=== PATIENT | male | born 1960 | race Caucasian/White ===

== ENCOUNTER 2024-07-12 15:05 | Emergency (ER) | payer MEDICARE, OTHER, SELFPAY ==
[2024-07-12 15:12] VITALS: BP 152/73
[2024-07-12 15:35] LABS: % Basophils 0.7 % (0-2); % Immature Granulocytes 0.5 % (0-0.5); % Lymphocytes 7.2 % (20.5-51.1); % Monocytes 4.5 % (1.7-9.3); % Neutrophils 87.1 % (42.2-75.2); Absolute Basophils 0.1 10^3/uL (0-0.2); Absolute Immature Granulocytes 0.1 10^3/uL (0-0.05); Absolute Lymphocytes 1.3 10^3/uL (1.2-3.4); Absolute Monocytes 0.8 10^3/uL (0.1-0.6); Absolute Neutrophils 15.9 10^3/uL (1.4-6.5); Hematocrit 41.9 % (39.0-52.0); Hemoglobin 14.9 g/dL (13.0-18.0); Mean Corp Hgb Conc. 35.6 g/dL (33.0-37.0); Mean Corpuscular Hgb 30.6 pg (27.0-31.0); Mean Platelet Volume 10.8 fL (7.4-10.4); Nucleated Red Blood Cells % 0 % (-); Platelet Count 260 10^3/uL (130-400); Red Blood Cell Count 4.87 10^6/uL (4.70-6.10); Red Cell Dist. Width 15.2 % (11.5-14.5); White Blood Cell Count 18.3 10^3/uL (4.8-10.8)
[2024-07-12 15:50] LABS: ALT (SGPT) 27 U/L (0-50); AST (SGOT) 23 U/L (17-59); Albumin 4.7 g/dl (3.5-5.0); Alkaline Phosphatase 101 U/L (38-126); Blood Urea Nitrogen 17 mg/dl (9-20); Calcium 10.2 mg/dl (8.4-10.2); Carbon Dioxide 24 mmol/L (22-30); Chloride 106 mmol/L (98-107); Glucose 129 mg/dl (70-99); Lipase 143 U/L (23-300); Potassium 4.3 mmol/L (3.5-5.1); Sodium 141 mmol/L (135-145); Total Bilirubin 0.5 mg/dl (0.2-1.3); Total Protein 7.4 g/dl (6.3-8.2); eGFR > 60.00
[2024-07-12 16:00] LABS: Troponin I < 0.012 ng/ml
[2024-07-12 16:06] VITALS: BP 148/84
--- NOTE | 2024-07-12 16:30 | ED.GENMED ---
History of Present Illness
General
Chief Complaint: Abdominal Pain
Source: patient
Exam Limitations: none
Time Seen by Provider: 07/12/24 16:30
Nursing documentation reviewed up to this point in time: agreed with
History of Present Illness
History of Present Illness:
Patient is a 64 yr old male who presents to the ER for evaluation. Patient reports at 12:30 PM while at work he had sudden onset left abdomen/flank pain which radiated to his left anterior abdomen groin and left testicle. He reports it was very
sudden and sharp. He almost passed out because the pain. Currently his pain has improved is mildly they are he also reports his urine seemed bloody/dark in color. He has not been able to urinate here though he does have the urge. He denies any
fever or chills. Denies any injury.
Review of Systems
Review of Systems
Allergies reviewed?: Yes
Constitutional: Reports no symptoms; Denies fever, fatigue or chills
Respiratory: Reports no symptoms
Cardiac: Reports no symptoms
ABD/GI: Reports abdominal pain; Denies nausea or vomiting
: Reports flank pain, difficulty voiding, bleeding and dark urine
Musculoskeletal: Reports no symptoms
Skin: Reports no symptoms
Neurological: Reports no symptoms
Psychiatric: Reports no symptoms
Phy Exam
General Physical Exam
General Presentation: no apparent distress
General age: appears stated age
General Skin: warm and dry
General Habitus: normal
General Mental: alert
General Hydration: appears well hydrated
Gastrointestinal Exam
Gastrointestinal Exam: normal bowel sounds, non tender and soft
Neurological Exam
Neurological Exam: alert and oriented x3
Musculoskeletal Exam
Musculoskeletal Exam: full ROM
Skin Exam
Skin Exam: normal color and warm/dry
Psychiatric Exam
Psychiatric Exam: normal mood/affect
Course
Orders/Labs/Results
Orders:
Orders
07/12/24 15:14
Electrocardiogram (*1) Urgent
Reason for Study: Abdominal Pain
EKG- Treatment ONCE
07/12/24 15:28
Complete Blood Count/With Diff Urgent
Comprehensive Metabolic Panel Urgent
Lipase Urgent
Troponin I Urgent
07/12/24 16:38
Bladder Scan- Treatment ONCE
IV Insert/Care/Rem.- Treatment PRN
0.9% Sodium Chloride 1000 ml [Nss] 1,000 ml IV BOLUS
0.9% Sodium Chloride 1000 ml [Nss] 1,000 ml IV BOLUS
Ketorolac [Toradol] 15 mg IV NOW STA
07/12/24 16:39
CT Abd/pel Without Iv Or Oral Urgent
Comment:
Reason For Exam: left flank pain
07/12/24 17:41
UA Reflex to Culture [Urinalysis Reflex To Culture] Urgent
Date Specimen was Collected: 07/12/24
Time Specimen was Collected: 17:38
Urine Microscopic Reflex Cult Urgent
Abnormal Lab Results
07/12/24 07/12/24
15:28 17:41
WBC 18.3 H 10^3/uL
(4.8-10.8)
RDW 15.2 H %
(11.5-14.5)
MPV 10.8 H fL
(7.4-10.4)
Abs Immat Gran (auto) 0.1 H 10^3/uL
(0-0.05)
Absolute Neuts (auto) 15.9 H 10^3/uL
(1.4-6.5)
Absolute Monos (auto) 0.8 H 10^3/uL
(0.1-0.6)
Neutrophils % 87.1 H %
(42.2-75.2)
Lymphocytes % 7.2 L %
(20.5-51.1)
Glucose 129 H mg/dl
(70-99)
Urine Ketones 3+ A
(Negative)
Ur Occult Blood Reflex 4+ A
(Negative)
Urine RBC >100 A /HPF
(0-2)
Urine Bacteria (Reflex) Few A
(Negative)
Urine Albumin (Reflex) 2+ A
(Neg - Trace)
07/12/24 15:28
07/12/24 15:28
Vital Signs
Initial and Last Documented VS:
Initial Vital Signs
Temp Pulse Resp BP Pulse Ox
98.4 F 61 18 152/73 99
07/12/24 15:12 07/12/24 15:12 07/12/24 15:12 07/12/24 15:12 07/12/24 15:12
Last Documented Vital Signs
Temp Pulse Resp BP Pulse Ox
98.4 F 70 15 123/78 99
07/12/24 15:12 07/12/24 17:15 07/12/24 16:54 07/12/24 17:00 07/12/24 17:30
MDM/Problems Addressed
Differential Diagnosis Includes:
Not limited to kidney stone, bladder infection
MDM/Problems Addressed:
Patient presented with left flank pain rating to left groin. Patient reports pain was very uncomfortable he reports he always had a near syncopal episode episode when pain occurred however now pain has improved and really subsided. He appears in
no acute distress. CAT scan does show findings consistent with a 2.5 mm stone within the posterior aspect of the urinary bladder likely secondary to recently passed stone. Urinalysis is negative for infection white count elevated likely reactive.
Patient is very well-appearing afebrile no acute distress abdomen soft nontender stable hemoglobin, normal kidney function. EKG normal sinus rhythm heart rate 65. Will DC with outpatient follow-up with urology.
*Radiology
Radiology exam reviewed: radiology read reviewed (2.5 cm stone within the posterior aspect of the bladder adjacent to the left UVJ likely secondary to recently passed stone)
*Pulse Oximetry
Patient hypoxic: no
*Critical Care Note
Total Time (30-74mins, 75-104mins- exclusive of procedures): Not Applicable
ED Attending Note
-
Portions of this chart may have been created with voice recognition software.� Occasional wrong word or��sound alike� substitutions may have occurred due to the inherent limitations of voice recognition software.
Discharge Plan
Departure
Patient Disposition: Home (Routine Discharge)
Date of Disposition: 07/12/24
Time of Disposition: 18:39
Patient with high blood pressure during this ER visit?: Yes
Condition: Fair
Covid-19: Not Applicable
Discharge Problem:
kidney stone
Instructions: Kidney Stones (DC), BLOOD PRESSURE
Referrals:
Alanna Gordillo MD [Family Provider] -
Alex Cruz Jr., MD [Active] -
Activity Restrictions/Additional Instructions:
As discussed please stay well-hydrated and strain all urine. Follow-up with urology. Call tomorrow to make an appointment next several days. Return if any worsening of symptoms include increased pain fever chills.
Interventions
Interventions:
*Risk Screen - Suicide Last Done: 07/12/24 15:12
*General Assessment Last Done: 07/12/24 15:12
*Neglect/Abuse Screening Last Done: 07/12/24 15:12
*ED- Fall Risk Assessment Last Done: 07/12/24 16:09
*ED COVID-19 Vaccine History Last Done: 07/12/24 15:12
HY-Tyhoir-Xzxempwhnl Assessment Last Done: 07/12/24 16:09
Discharge Date and Time
Print Language: Ukranian
[2024-07-12 17:00] VITALS: BP 123/78
[2024-07-12] MEDS: NSS 1000 IV (17:05)
[2024-07-12] MEDS: TORADOL 15 MG IV (17:05)
[2024-07-12 17:53] LABS: Urine Albumin 2+ (Neg - Trace); Urine Bilirubin Negative (Negative); Urine Character Clear (Clear); Urine Color Yellow; Urine Glucose Negative (Negative); Urine Ketone 3+ (Negative); Urine Leukocyte Negative (Negative); Urine Nitrite Negative (Negative); Urine Occult Blood 4+ (Negative); Urine Urobilinogen Negative (Neg - 1+)
[2024-07-12 18:00] VITALS: BP 125/74
[2024-07-12 18:11] LABS: Urine Bacteria Few (Negative); Urine Red Blood Cell >100 /HPF (0-2); Urine Squamous Cell 0-2 /LPF (Few); Urine White Cell 0-2 /HPF (0-5)
== END 2024-07-12 19:09 | disposition home or self-care (01) ==
LOC: EMR 15:05
PROVIDERS: Nurse Practitioner; EMERGENCY PHYSICIAN Student in an Organized Health Care Education/Training Program; FAMILY PHYSICIAN Family Medicine
DX: N20.0 Calculus of kidney (principal); N21.0 Calculus in bladder
CPT/HCPCS: 99285; 96374; 74176; 80053; 81003; 81015; 83690; 84484; 85025; 93005